=== PATIENT | female | born 1945 | race Hispanic/Latino ===

== ENCOUNTER 2024-11-02 14:56 | Emergency (ER) | payer OTHER ==
[~2024-11-02] VITALS: Ht 165.1 cm; Wt 90.7 kg
--- NOTE | 2024-11-02 15:08 | ERN ---
ED Note History of Present Illness Stated Complaint: MECHANICAL FALL Chief Complaint: Mechanical Fall Time Seen by MD: 14:57 Dictation: PATIENT IS A 79-YEAR-OLD FEMALE COMING IN TODAY WITH COMPLAINTS OF LEFT HIP KNEE AND ANKLE PAIN, RIGHT FOOT PAIN STATUS POST A SAME LEVEL TRIP FALL. SHE DENIES HITTING HER HEAD, NO LOC NO BLOOD THINNERS NO TRAUMA ALERT CRITERIA. SHE HAS FULL WEIGHT-BEARING WITH HER WALKER. NO SHORTENING OR ROTATION OF HER LEFT LEG, DROVE HERSELF TO THE HOSPITAL. Allergies: Coded Allergies: No Known Allergies (Unverified Allergy, Unknown, 11/02/24) Home Meds Active Scripts Ibuprofen (Ibuprofen 800 mg Tab) 800 Mg Tab, 800 MG PO Q8H PRN for fever or pain, #30 TAB 0 Refills Prov:FELIMANDY REFRIGERATION SUPERVISOR 11/02/24 Past Medical History Past Medical History: Diabetes-Type II, High Cholesterol, Hypertension Surgical History: Cholecystectomy, Other Surgical History Other: CYST, RT SHOULDER History: Not Applicable RN Note Reviewed/Agreed w/PFSH: Yes Review of System Dictation CONSTITUTIONAL: NEGATIVE EXCEPT FOR HPI HEAD/FACE: NEGATIVE EXCEPT FOR HPI EENT: NEGATIVE EXCEPT FOR HPI RESPIRATORY: NEGATIVE EXCEPT FOR HPI GASTROINTESTINAL/ABDOMINAL: NEGATIVE EXCEPT FOR HPI GENITOURINARY: NEGATIVE EXCEPT FOR HPI MUSCULOSKELETAL: NEGATIVE EXCEPT FOR HPI RIGHT FOOT, LEFT HIP KNEE AND ANKLE PAIN INTEGUMENTARY: NEGATIVE EXCEPT FOR HPI NEUROLOGICAL/PSYCH: NEGATIVE EXCEPT FOR HPI HEMATOLOGIC/LYMPHATIC: NEGATIVE EXCEPT FOR HPI ALL SYSTEMS NEGATIVE, EXCEPT NOTED ABOVE. 13 POINT REVIEW OF SYSTEMS ASSESSED AND ALL NEGATIVE EXCEPT FOR ABOVE. Initial Vital Sign VS Vital Signs Date Time Temp Pulse Resp B/P (MAP) Pulse Ox O2 Delivery O2 Flow Rate FiO2 11/02/24 15:02 97.5 85 16 145/74 97 Room Air 0 11/02/24 15:58 21 Physical Exam Dictation VITAL SIGNS REVIEWED GENERAL APPEARANCE: ALERT, ORIENTED X 3, MODERATE ACUTE DISTRESS, WELL DEVELOPED, NOURISHED. HEAD AND FACE: NON-TRAUMATIC. EYES: PERRL, PINK CONJUNCTIVAS, EYELID NO TRAUMA, ANTERIOR CHAMBER WITH ARCUS SENILIS. EARS: PINNAS INTACT AND NO SIGNS OF TRAUMA OR ERYTHEMA EAR CANALS CLEAR AND NO DISCHARGE TM NO ERYTHEMA NOSE: NO DISCHARGE, NO BLEEDING. OROPHARYNX: MOUTH NORMAL, TONGUE PINK, PHARYNX CLEAR,NO ERYTHEMA, TONSILS NO EXUDATES, NO ABSCESSES NOTED, MUCOUS MEM BRANE MOIST NECK: SUPPLE, NON-TENDER, NO THYROMEGALY, NO MASSES, NO JVD, NO BRUITS BREAST:DEFERRED CHEST:NO TENDERNESS, NO CREPITUS, NO PARADOXICAL MOVEMENT, NO RETRACTIONS LUNGS:CLEAR, WELL-VENTILATED, SYMMETRIC, NO RALES, NO WHEEZING, NO RHONCHI, NO STRIDOR, GOOD BREATH SOUNDS BILATERALLY HEART: REGULAR RATE, REGULAR RHYTHM, NO MURMUR, NO GALLOPS VASCULAR: NO PERIPHERAL EDEMA, ABDOMEN: SOFT, POSITIVE BOWEL SOUNDS, NONDISTENDED, NO GUARDING, NONTENDER, NO REBOUND, NO MASSES NO HEPATOMEGALY, NO SPLENOMEGALY, NO RUIZ'S SIGN, NO HERNIAS. RECTAL: DEFERRED GENITAL: DEFERRED NEUROLOGICAL: NORMAL SPEECH, MOTOR FUNCTION INTACT, SENSORY FUNCTION INTACT MUSCULOSKELETAL: NECK NONTENDER, FULL RANGE OF MOTION, BACK NONTENDER, FULL RANGE OF MOTION, EXTREMITIES: RIGHT FOOT PAIN PROXIMAL GREAT TOE. LEFT LEG PAIN FROM HIP TO ANKLE. NO SHORTENING OR ROTATION. PATIENT FULL WEIGHT-BEARING WITH HER WALKER. SKIN: COLOR PINK, DRY, NO TURGOR, NO RASH, NO LACERATIONS, NO ABRASIONS, NO CONTUSIONS. LYMPHATIC: DEFERRED Results (Laboratory/Radiology) Laboratory/Radiology NEE 3VWS LT REASON: LEFT KNEE PAIN STATUS POST FALL TECHNIQUE: 3 views were obtained. FINDINGS: There is moderate medial joint space narrowing and mild lateral joint space narrowing, there are osteophytes along the joint margins. Patellofemoral joint appears preserved. There are no fractures. There is no evidence of a joint effusion. IMPRESSION: 1. 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 2. No acute finding. IP UNILAT 2-3VW LEFT REASON: LEFT LATERAL HIP PAIN STATUS POST FALL TECHNIQUE: 3 views were obtained. FINDINGS: There is no evidence of fracture or dislocation. There is no joint effusion. The soft tissues appear unremarkable. There is no evidence of a radiopaque foreign body. IMPRESSION: No acute findings. ANKLE COMP 3VWS LT REASON: LEFT ANKLE PAIN STATUS POST FALL TECHNIQUE: 3 views were obtained. FINDINGS: There is no evidence of fracture or dislocation. There is no joint effusion. The soft tissues appear unremarkable. There is no evidence of a radiopaque foreign body. IMPRESSION: No acute findings. Labs Reviewed?: Yes ED Course ED Course Orders Procedure Category Date Status Time Foot Comp 3+Vws Rt RAD 11/02/24 Resulted 15:03 Hip Unilat 2-3vw Left RAD 11/02/24 Resulted 15:03 Knee 3vws Lt RAD 11/02/24 Resulted 15:03 Ankle Comp 3vws Lt RAD 11/02/24 Resulted 15:03 Acetaminophen With PHA 11/02/24 Complete Codeine (Tylenol-Code 15:30 Current Medications Medications (Trade) Dose Ordered Sig/Dg Route PRN Reason Start Time Stop Time Status Last Admin Dose Admin Acetaminophen/ Codeine Phosphate (TYLenol-coDEINE TAB) 2 tab ONCE ONCE PO 11/02/24 15:30 11/02/24 15:31 DC 11/02/24 15:54 Vital Signs Date Time Temp Pulse Resp B/P (MAP) Pulse Ox O2 Delivery O2 Flow Rate FiO2 11/02/24 15:58 97.5 85 16 145/74 97 Room Air* 0 21 11/02/24 15:02 97.5 85 16 145/74 97 Room Air 0 1632, PATIENT STATES PAIN IS DOWN TO 3/10. SHE IS AWARE THAT ALL X-RAYS NEGATIVE, TOLD TO SEE HER PRIMARY CARE DOCTOR FOR FOLLOW UP TOMORROW Medical Decision Making MDM MEDICAL DISCHARGE MAKING BASED ON X-RAYS OF LEFT HIP KNEE AND ANKLE, RIGHT FOOT. ALL X-RAYS NEGATIVE PATIENT DISCHARGED HOME WITH TYLENOL WITH CODEINE TOLD TO SEE HER PRIMARY CARE DOCTOR FOR FOLLOW UP MDM: Differential diagnosis: Fall, leg contusion, contusion right foot Risk of complication and/or morbidity or mortality of patient management: None Medications-Per medication reconciliation Need for hospitalization: Patient does not meet criteria for hospitalization. Need for emergency major/minor surgery: No There are no social concerns with this patient. Prescription drug management Prescriptions will include symptomatic care I independently interpreted the test that were performed, results were reviewed by me and considered findings on radiology if ordered. DX & DISP Disposition: Discharge Departure Impression: Primary Impression: Contusion of left leg Additional Impressions: Contusion of left lower leg, initial encounter, Contusion of right foot, initial encounter, Fall Condition: Stable Scripts Ibuprofen (Ibuprofen 800 mg Tab) 800 Mg Tab 800 MG PO Q8H PRN for fever or pain, #30 TAB 0 Refills Prov: MANDY EDMOND REFRIGERATION SUPERVISOR 11/02/24 Additional Instructions: FOLLOW-UP WITH PRIMARY CARE PROVIDER IN 1 TO 2 DAYS. TAKE MEDICATIONS DIRECTED HERE IN THE EMERGENCY ROOM. OKAY TO CONTINUE HOME MEDICATIONS UNLESS OTHERWISE DISCUSSED DURING YOUR VISIT IN THE EMERGENCY ROOM TODAY. RETURN TO YOUR NEAREST EMERGENCY ROOM IF SYMPTOMS WORSEN OR IF THERE IS NO IMPROVEMENT. CALL 911 IF YOU NEED IMMEDIATE ASSISTANCE. TAKE TYLENOL OR MOTRIN [id number] TER NEEDED AND IF NO CONTRAINDICATIONS ARE PRESENT. INCREASE ORAL HYDRATION. A WOUND CULTURE OR URINE CULTURE WAS ORDERED HERE IN THE EMERGENCY ROOM DEPARTMENT PLEASE FOLLOW-UP WITH PRIMARY CARE PROVIDER AND ADVISE THEM TO GET REPEAT PORTS FROM OUR FACILITY. IF YOU HAD ANY GREGORY WRAP/SPLINTS THAT WERE APPLIED HERE, PLEASE DO NOT REMOVE THEM UNTIL YOU SEE YOUR PRIMARY CARE OR SP ECIALTY. COOL COMPRESSES TO PAIN THREE TO 4 TIMES A DAY. TAKE IBUPROFEN DIRECTED FOR PAIN. ACTIVITY TOLERATED AND SEE YOUR PRIMARY CARE DOCTOR FOR FOLLOW UP AND MANAGEMENT Time of Disposition: 16:35 I have reviewed the case, and I agree with, Diagnosis and Plan I performed the substantive portion of the visit. I have reviewed and personally made and approve the management plan that is documented in the notes by myself or the VELMA. I acknowledge full responsibility for the patient's management plan. MANDY EDMOND NP Nov 02, 2024 15:08 ALPHONSO PARADA MD Nov 03, 2024 18:39
[2024-11-02] MEDS: acetaMINOPHEN WITH coDEINE 1 TAB TAB PO ONE (15:54)
[2024-11-02 15:58] VITALS: BP 145/74; PULSE 85; RESP 16; TEMP 97.6; O2SAT 97
--- NOTE | 2024-11-02 16:10 | HMCIMG ---
ANKLE COMP 3VWS LT REASON: LEFT ANKLE PAIN STATUS POST FALL TECHNIQUE: 3 views were obtained. FINDINGS: There is no evidence of fracture or dislocation. There is no joint effusion. The soft tissues appear unremarkable. There is no evidence of a radiopaque foreign body. IMPRESSION: No acute findings.
--- NOTE | 2024-11-02 16:11 | HMCIMG ---
KNEE 3VWS LT REASON: LEFT KNEE PAIN STATUS POST FALL TECHNIQUE: 3 views were obtained. FINDINGS: There is moderate medial joint space narrowing and mild lateral joint space narrowing, there are osteophytes along the joint margins. Patellofemoral joint appears preserved. There are no fractures. There is no evidence of a joint effusion. IMPRESSION: 1. 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 2. No acute finding.
--- NOTE | 2024-11-02 16:13 | HMCIMG ---
HIP UNILAT 2-3VW LEFT REASON: LEFT LATERAL HIP PAIN STATUS POST FALL TECHNIQUE: 3 views were obtained. FINDINGS: There is no evidence of fracture or dislocation. There is no joint effusion. The soft tissues appear unremarkable. There is no evidence of a radiopaque foreign body. IMPRESSION: No acute findings.
--- NOTE | 2024-11-02 16:13 | HMCIMG ---
FOOT COMP 3+VWS RT REASON: RIGHT FOOT PAIN STATUS POST SAME LEVEL FALL TECHNIQUE: 3 views were obtained. FINDINGS: There is no evidence of fracture or dislocation. There is no joint effusion. The soft tissues appear unremarkable. There is no evidence of a radiopaque foreign body. IMPRESSION: No acute findings.
[2024-11-02] MEDS ORDERED: IBUP-2077 PO (16:37)
== END 2024-11-02 16:43 | disposition home or self-care (01) ==
LOC: EDH 14:56
DX: S80.12XA Contusion of left lower leg, initial encounter (principal); S90.31XA Contusion of right foot, initial encounter; E11.9 Type 2 diabetes mellitus without complications; E78.00 Pure hypercholesterolemia, unspecified; I10 Essential (primary) hypertension; Z90.49 Acquired absence of other specified parts of digestive tract; Z79.899 Other long term (current) drug therapy; Z98.890 Other specified postprocedural states; W01.0XXA Fall on same level from slipping, tripping and stumbling without subsequent striking against object, initial encounter; Y93.89 Activity, other specified; Y92.89 Other specified places as the place of occurrence of the external cause; Y99.8 Other external cause status
CPT/HCPCS: 73502; 73562; 73610; 73630; 99284